=== PATIENT | male | born 1940 | race Caucasian/White ===

== ENCOUNTER 2019-10-04 14:01 | Emergency (ER) | payer MEDICARE, SELFPAY ==
[2019-10-04 14:03] VITALS: BP 148/65; PULSE 85; RESP 18; TEMP 37.5; O2SAT 97; BMI 31.0
--- NOTE | 2019-10-04 14:03 | ED_ITS ---
Entered by Diana Parsons, acting as scribe for Nick Shelley MD HPI - General Adult General: Chief complaint: Weakness Stated complaint: WEAKNESS; DIARRHEA Time Seen by Provider: 10/04/19 14:04 History of Present Illness: HPI narrative: 79 yo male presents with weakness and unable to get up. Pt has had diarrhea and weakness that started at 1300 today. Pt states that he had sepsis about 1 year ago and he feels the same way. MD complaint: weakness and diarrhea. Onset (ago): hour(s) Location: lower extremity Radiation: non-radiation Severity: moderate Relieving factors: none Exacerbating factors: none Associated symptoms: Reports weakness; Deny chest pain, dyspnea, headache(s) or rash Review of Systems Const: Denies: fever, chills, body aches or change in appetite Eyes: Denies: blurry vision or eye discomfort ENMT: Denies: throat pain or dental pain Card: Denies: chest pain Resp: Denies: shortness of breath GI: Reports: diarrhea : Denies: painful urination Musc: Denies: neck pain or back pain Skin/Breast: Denies: rash Neuro: Denies: headache Psych: Denies: depression Suresh/Lymph: Denies: easy bruising All/Imm: Denies: hives PFSH ED PFSH: Medical History (Updated 10/04/19 @ 15:43 by Nick Shelley MD) Benign prostatic hyperplasia Diabetes mellitus Hypertension Surgical History (Updated 10/04/19 @ 14:13 by Diana Parsons) H/O cystoscopy H/O transurethral resection of prostate Family History (Updated 09/25/19 @ 08:46 by Kianna Kruger RN) Mother , 86- No problems noted. Father , 84 No problems noted. Social History (Updated 09/25/19 @ 08:47 by Kianna Kruger RN) Smoking and tobacco status: former smoker Alcohol intake: never Marital status: Current occupational status: retired Physical Exam Const: COMMON NORMALS: no apparent distress, oriented x3 and healthy appearing HENMT: COMMON NORMALS: normocephalic and head/scalp atraumatic HEAD & SCALP: normocephalic and atraumatic Eye: COMMON NORMALS: PERRL and EOMs intact bilaterally PUPIL: Yes PERRL Neck/C-Spine: COMMON NORMALS: full ROM and supple Chest: COMMONS NORMALS: inspection of chest normal and palpation of chest normal Resp: COMMON NORMALS: normal respiratory effort, no retractions, no use of accessory muscles and clear to auscultation bilaterally AUSCULTATION: clear to auscultation bilaterally Cardio: COMMON NORMALS: regular rate, regular rhythm and no murmurs RATE: regular rate RHYTHM: regular rhythm GI: COMMON NORMALS: normal to inspection, nondistended, normoactive bowel sounds, soft to palpation, non-tender and no masses PALPATION: Yes soft Extremity: COMMON NORMALS: normal to inspection and full ROM Neuro: COMMON NORMALS: oriented x3, moves all extremities and no focal motor deficits Psych: COMMON NORMALS: mental status grossly normal, thought process normal and cooperative THOUGHT PROCESS: normal thought process Skin: COMMON NORMALS: no rashes or lesions noted and no wounds GENERAL SKIN EXAM: no rashes or lesions noted Course Vital Signs: Vital signs: Vital Signs Temperature 99.5 F 10/04/19 14:03 Pulse Rate 75 10/04/19 16:17 Respiratory Rate 15 10/04/19 16:17 Blood Pressure 132/71 10/04/19 16:17 Pulse Oximetry 98 10/04/19 16:17 MDM - General Adult MDM Narrative: Medical decision making narrative: Marco presents here with generalized weakness is found to have influenza. I believe he has dehydration and influenza also causing his weakness. Patient has no signs of stroke. After IV fluids patient states he feels much better and he has ambulated the halls here without any problems. Patient's did want him to be admitted and I spoke to him and her at great length and offered him admission. He states that he felt fine he did not want to be admitted. Informed if he changes his mind or gets worse he is to return. Patient is to continue to drink plenty of fluids at home and start Tamiflu. Lab Data: Labs: Lab Results 10/04/19 10/04/19 10/04/19 Range/Units 14:16 14:16 14:45 WBC 5.5 (4.0-10.0) 10^3/ uL RBC 3.51 L (4.1-5.3) 10^6/u L Hgb 10.6 L (11.7-16.6) g/dL Hct 33.6 L (42.0-52.0) % MCV 95.7 H (80-94) fL MCH 30.2 (28.0-34.0) pg MCHC 31.5 (30.0-36.0) g/dL RDW 13.2 (12.1-15.1) % Plt Count 110 L (130-400) 10^3/c mm MPV 10.5 H (7.4-10.4) fL Neut % (Auto) 75.4 % Lymph % (Auto) 9.9 % [place] % (Auto) 10.9 % Eos % (Auto) 2.9 % Baso % (Auto) 0.5 % Neut # (Auto) 4.1 (1.8-7.7) 10^3/u L Lymph # (Auto) 0.5 L (0.8-4.8) 10^3/u L [place] # (Auto) 0.6 (0.2-0.9) 10^3/u L Eos # (Auto) 0.2 (0.0-0.8) 10^3/u L Baso # (Auto) 0.0 (0.0-0.1) 10^3/u L Nucleated RBC % (a uto) 0 % Nucleated RBCs # 0.0 /100WBC Sodium 135 L (136-145) mmol/L Potassium 4.5 (3.5-5.1) mmol/L Chloride 98 (98-107) mmol/L Carbon Dioxide 24 (22-29) mmol/L Anion Gap 17.5 (5-19) BUN 17 (8-23) mg/dL Creatinine 1.3 H (0.7-1.2) mg/dL Glucose 150 H (65-115) mg/dL Calcium 9.1 (8.5-10.5) mg/dL Total Bilirubin 0.2 (0.15-1.2) mg/dL AST 29 (0-40) U/L ALT 30 (0-41) U/L Alkaline Phosphata se 73 (40-130) IU/L Total Protein 6.0 L (6.6-8.7) g/dL Albumin 4.0 (3.5-5.2) g/dL Globulin 2.0 (1.3-4.6) g/dL Urine Color (Yellow) Urine Appearance (CLEAR) Urine pH (5-7) Ur Specific Gravit y (1.005-1.030) Urine Protein (Negative) Urine Glucose (UA) (Normal) Urine Ketones (Negative) Urine Blood (Negative) Urine Nitrate (Negative) Urine Bilirubin (NEGATIVE) Urine Urobilinogen (Negative) mg/dL Ur Leukocyte Dianna ase (Negative) Urine RBC (0-2) /hpf Urine WBC (0-5) /hpf Ur Squamous Epith Cells (0-5) Urine Bacteria (NONE) Urine Mucus Urine Yeast Influenza Type A A g Positive H (Negative) POC Influenza B Ag Negative (Negative) 10/04/19 Range/Units 15:15 WBC (4.0-10.0) 10^3/ uL RBC (4.1-5.3) 10^6/u L Hgb (11.7-16.6) g/dL Hct (42.0-52.0) % MCV (80-94) fL MCH (28.0-34.0) pg MCHC (30.0-36.0) g/dL RDW (12.1-15.1) % Plt Count (130-400) 10^3/c mm MPV (7.4-10.4) fL Neut % (Auto) % Lymph % (Auto) % [place] % (Auto) % Eos % (Auto) % Baso % (Auto) % Neut # (Auto) (1.8-7.7) 10^3/u L Lymph # (Auto) (0.8-4.8) 10^3/u L [place] # (Auto) (0.2-0.9) 10^3/u L Eos # (Auto) (0.0-0.8) 10^3/u L Baso # (Auto) (0.0-0.1) 10^3/u L Nucleated RBC % (a uto) % Nucleated RBCs # /100WBC Sodium (136-145) mmol/L Potassium (3.5-5.1) mmol/L Chloride (98-107) mmol/L Carbon Dioxide (22-29) mmol/L Anion Gap (5-19) BUN (8-23) mg/dL Creatinine (0.7-1.2) mg/dL Glucose (65-115) mg/dL Calcium (8.5-10.5) mg/dL Total Bilirubin (0.15-1.2) mg/dL AST (0-40) U/L ALT (0-41) U/L Alkaline Phosphata se (40-130) IU/L Total Protein (6.6-8.7) g/dL Albumin (3.5-5.2) g/dL Globulin (1.3-4.6) g/dL Urine Color Yellow (Yellow) Urine Appearance Sl hazy (CLEAR) Urine pH 7 (5-7) Ur Specific Gravit y 1.010 (1.005-1.030) Urine Protein Trace (Negative) Urine Glucose (UA) 1+ (Normal) Urine Ketones Negative (Negative) Urine Blood Neg (Negative) Urine Nitrate Negative (Negative) Urine Bilirubin Neg (NEGATIVE) Urine Urobilinogen Norm (Negative) mg/dL Ur Leukocyte Dianna ase Negative (Negative) Urine RBC None (0-2) /hpf Urine WBC 40-55 H (0-5) /hpf Ur Squamous Epith Cells 0-4 H (0-5) Urine Bacteria 1+ H (NONE) Urine Mucus Trace Urine Yeast 1+ H Influenza Type A A g (Negative) POC Influenza B Ag (Negative) Imaging Data^: CXR: Attestation: I personally reviewed and interpreted this imaging study as f jw: My impression: No acute abnormality Discharge Plan Discharge Patient Disposition: Home, Self-Care Clinical Impression: Dehydration, Influenza Condition: Stable Prescriptions: New Tamiflu 75 mg capsule 75 mg PO BID 5 Days Qty: 10 RF: 0 Discharge Orders: Discharge Order (Routine); Ordered 10/04/19 Ordered By: Nick Shelley Referrals: Jeannie Ye MD [Primary Care Provider] - 4-7 days Discharge Diet: Advance as tolerated Discharge Activity: Resume usual activity Patient Instructions: Influenza (ED) Discharge Date/Time: 10/04/19 16:18 Coding Level of Care Code ED It Architecture Analyst for Chg Fwd Exam Comprehensive The documentation recorded by the Issa kraus Kialy, accurately reflects the service I personally performed and the decisions made by Karsten meraz Korby, MD Oct 04, 2019 14:01
[2019-10-04] MEDS: sodium chloride 0.9% 1,000 ML 999 ML IV (14:12)
[2019-10-04 14:22] LABS: Basophils % 0.5 %; Eosinophils # 0.2 10^3/uL (0.0-0.8); Eosinophils % 2.9 %; Hematocrit 33.6 % (42.0-52.0); Hemoglobin 10.6 g/dL (11.7-16.6); Lymphocytes # 0.5 10^3/uL (0.8-4.8); Lymphocytes % 9.9 %; Mean Corpuscular HGB Conc 31.5 g/dL (30.0-36.0); Mean Corpuscular Hemoglobin 30.2 pg (28.0-34.0); Mean Corpuscular Volume 95.7 fL (80-94); Mean Platelet Volume 10.5 fL (7.4-10.4); Monocytes # 0.6 10^3/uL (0.2-0.9); Monocytes % 10.9 %; Neutrophils # 4.1 10^3/uL (1.8-7.7); Neutrophils % 75.4 %; Nucleated Red Blood Cells % 0 %; Platelet Count 110 10^3/cmm (130-400); Red Blood Count 3.51 10^6/uL (4.1-5.3); Red Cell Distribution Width 13.2 % (12.1-15.1); White Blood Count 5.5 10^3/uL (4.0-10.0)
[2019-10-04 14:37] LABS: Alanine Aminotransferase 30 U/L (0-41); Alkaline Phosphatase 73 IU/L (40-130); Anion Gap 17.5 (5-19); Aspartate Amino Transferase 29 U/L (0-40); Blood Urea Nitrogen 17 mg/dL (8-23); Calcium 9.1 mg/dL (8.5-10.5); Carbon Dioxide 24 mmol/L (22-29); Chloride 98 mmol/L (98-107); Glucose 150 mg/dL (65-115); Potassium 4.5 mmol/L (3.5-5.1); Sodium 135 mmol/L (136-145); Total Bilirubin 0.2 mg/dL (0.15-1.2)
--- NOTE | 2019-10-04 14:37 | XR_ITS ---
WS: [id number] CHEST XRAY TECHNIQUE: Portable chest. CLINICAL INFORMATION: fever COMPARISON: [phone],018 FINDINGS: Heart: Normal cardiac silhouette. Lungs: Lungs are clear. No consolidation or pleural effusion. Bones: Normal visualized bony structures. XR/XR chest 1V portable [id number] IMPRESSION: No acute chest findings
--- NOTE | 2019-10-04 15:00 | PC.NURSE ---
Patient up to bedside commode for stool collection. Patient unable to provide sample.
[2019-10-04 15:15] LABS: Influenza A by IFA Positive (Negative); Influenza B by IFA Negative (Negative)
[2019-10-04 15:37] LABS: Bilirubin Urine Neg (NEGATIVE); Blood Urine Neg (Negative); Glucose Urine UA 1+ (Normal); Ketones Urine Negative (Negative); Leukocyte Esterase Urine Negative (Negative); Nitrate Urine Negative (Negative); Protein Urine Trace (Negative); Urine Appearance SL Hazy (CLEAR); Urine Color Yellow (Yellow); Urobilinogen Urine Norm (Negative); pH Urine 7 (5-7)
[2019-10-04 15:49] LABS: Bacteria Urine 1+; Squamous Epithelial Cell Urine 0-4 (0-5); WBC Urine 40-55 /hpf (0-5)
[2019-10-04 15:50] LABS: Add Urine Culture? Yes; Mucus Urine TRACE
[2019-10-04 16:17] VITALS: BP 132/71; PULSE 75; RESP 15; O2SAT 98
== END 2019-10-04 16:18 | disposition home or self-care (01) ==
PROVIDERS: Emergency Provider Emergency Medicine; Family Provider Family Medicine; PCP Family Medicine
DX: J11.1 Influenza due to unidentified influenza virus with other respiratory manifestations (principal); E86.0 Dehydration; I10 Essential (primary) hypertension; E11.9 Type 2 diabetes mellitus without complications; Z87.891 Personal history of nicotine dependence
CPT/HCPCS: 36415; 71045; 80053; 81001; 85025; 87086; 87804; 96360; 99281; 99283; A9270; J7030

== ENCOUNTER 2020-05-20 12:11 | Outpatient (CLI) | payer MEDICARE, SELFPAY ==
--- NOTE | 2020-05-20 12:17 | USCV_ITS ---
Joe Marco Age: 79 Gender: M : 1940 Exam Date: 05/20/2020 12:08 Ordering Phys: Abdulaziz Edwards MD (Andy) ([email or web address]) Technologist: [place] [facility] [place]: CLAUDICATION RIGHT LEFT Brachial 138.00 mmHg Brachial 143.00 mmHg Pressure (mmHg) Waveform Pressure (mmHg) Waveform 172.00 DATABASE MANAGEMENT SPECIALIST 184.00 167.00 DPA 157.00 1.20 Ankle/Brachial Index 1.29 121.00 Pre-Exercise Toe Pressure 120.00 0.85 Pre-Exercise Toe/Brachial Index 0.84 FINDINGS Normal ABIs bilaterally Normal TBIs bilaterally. CONCLUSIONS No significant arterial obstruction, based on the above findings Dr Anni Mullins MD [facility] (Electronically Signed) Final Date: 20 May 2020 17:46 S
== END 2020-05-20 12:12 | disposition home or self-care (01) ==
LOC: US 12:15
PROVIDERS: PCP Family Medicine; Visit Provider Family Medicine
DX: I73.9 Peripheral vascular disease, unspecified (principal)
CPT/HCPCS: 93922